=== PATIENT | male | born 1940 | race Caucasian/White ===

== ENCOUNTER 2020-04-28 18:59 | Inpatient (IN) | payer OTHER, MEDICARE ==
[~2020-04-28] VITALS: Ht 177.8 cm; Wt 92.5 kg
[2020-04-28 21:17] VITALS: BP 152/100
[2020-04-28] MEDS ORDERED: NORVASC 2.5 MG2.5 MG PO (21:46)
[2020-04-28] MEDS ORDERED: COZAAR 25 MG TA25 M1 PO (21:47)
[2020-04-28] MEDS ORDERED: ELIQUIS5 MG PO (21:48)
[2020-04-28] MEDS ORDERED: FUROSEMIDE 20 M20 MG PO (21:51)
[2020-04-28] MEDS ORDERED: SILDENAFIL CIT100 MG PO (21:54)
[2020-04-28] MEDS ORDERED: SUPER THERAVIT1 EACH PO (21:55)
[2020-04-28 22:27] LABS: CHOLESTEROL 155 mg/dL (<200); HDL CHOLESTEROL 67 mg/dL (>40); LDL CHOLESTEROL 77 mg/dL (<100); TC:HDL 2.3 Ratio (Not establshd); TRIGLYCERIDE 58 mg/dL (<150); VLDL 12 mg/dL (<40)
[2020-04-28 22:41] LABS: SERUM ASSESSMENT Clear
[2020-04-29 00:24] VITALS: BP 126/85
[2020-04-29 02:13] LABS: URINE BILIRUBIN NEGATIVE (Negative); URINE BLOOD NEGATIVE (Negative); URINE CLARITY CLEAR; URINE COLOR YELLOW; URINE GLUCOSE-RANDOM* TRACE (Negative); URINE KETONES TRACE (Negative); URINE LEUKOCYTES NEGATIVE (Negative); URINE NITRITE NEGATIVE (Negative); URINE PROTEIN (DIPSTICK) NEGATIVE (Negative); URINE SPECIFIC GRAVITY 1.025 (1.005-1.035); URINE UROBILINOGEN 0.2 E.U./dl (0.2-1.0)
--- NOTE | 2020-04-29 02:17 | NUR ---
PT, A DIRECT ADMISSION FROM [facility]. PT SENT TO [facility] FOR ELEVEATED TROPONIN. PT ARRIVED 2104. ADMISSION, CONSENT FORMS , SIGNED. PT ALERT AND ORIENTED. DENIES CHEST PAIN, NAUSEA, OR VOMITING. PT REPORTS FEELING BETTER NOW ALMOST ALL HIS PRESENTING SYMPTOMS HAVE SUBSIDED. PT ORIENTED TO ROOM, TELE MONITOR APPLIED, SHOWS SR WITH WITH INTERMITTENT A PACING. INITIAL TROPONIN 0.06 ON ARRIVAL DENIES CHEST PAIN . PT MOVES INDEPENDENTLY. NO SKIN ISSUE NOTED. WILL KEEP PT NPO OVERNIGHT FOR AM CARDIAC CONSULT. PT CUREENTLY RESTING , NO CONCERN. FAMILY UPDATED ABOUT PT ADMISSION AND PLAN. WILL CONTINUE TO MONITOR .
[2020-04-29 04:56] LABS: CALCIUM 8.4 mg/dL (8.5-10.1); CREATININE 1.5 mg/dL (0.7-1.3); POTASSIUM 3.5 mmol/L (3.5-5.1)
[2020-04-29 05:05] LABS: TROPONIN-I 0.06 ng/mL (<0.06)
[2020-04-29 05:35] VITALS: BP 124/66
[2020-04-29 08:15] VITALS: BP 120/73
--- NOTE | 2020-04-29 09:19 | 2DMMODE ---
[facility] [place] [address] 2 D/M-MODE ECHOCARDIOGRAM Name: EL VERA Room #: 205-P ADM IN M.R.#: [id number] Admission: 04/28/20 Attend Phys: Claude Graves MD Discharge: Date of : 40 Report #: [id number] THIS REPORT FOR: cc: Farrukh Mccoy Damon DO Santiago, Patrick MD [facility] ~ APPROVED REPORT Study performed: 04/29/2020 07:54:20 EXAM: Comprehensive 2D, Doppler, and color-flow Echocardiogram Patient Location: In-Patient Room #: 205 Status: routine BSA: 2.10 HR: 59 bpm BP: 124/66 mmHg Other Information Study Quality: Fair Technically limited study due to body habitus. Risk Factors: Cardiac Risk Factors: HTN Indications Hypertension/HDD 2D Dimensions IVSd: 11.53 (7-11mm) LVOT Diam: 20.11 (18-24mm) LVDd: 43.75 mm PWd: 12.03 (7-11mm) Ascending Ao: 35.63 (22-36mm) LVDs: 35.17 (25-40mm) Aortic Root: 30.36 mm IVC: 22.00 mm LV Single Plane 4CH: 51.40 % Oneal's LVEF: 51.00 % Volumes Left Atrial Volume (Systole) Single Plane 4CH: 37.97 mL Single Plane 2CH: 37.62 mL LA ESV Index: 21.00 mL/m2 Aortic Valve AoV Peak Randolph.: 1.43 m/s [facility] [address] 2 D/M-MODE ECHOCARDIOGRAM Name: EL VERA Room #: 205-P [facility] IN .R.#: [id number] Admission: 04/28/20 Attend Phys: Claude Graves MD Discharge: Date of : 40 Report #: [id number] Peak Gr.: 8.22 mmHg LVOT Max P.06 mmHg LVOT Max V: 0.87 m/s MELIA Vmax: 1.94 cm2 Mitral Valve MV Peak Gr.: 4.26 mmHg MV Mean Gr.: 1.56 mmHg E/A Ratio: 0.9 MV Decel. Time: 5202.72 ms MV E Max Randolph.: 0.58 m/s MV A Randolph.: 0.63 m/s MV Max Randolph.: 1.03 m/s MV Mean Randolph.: 0.55 m/s MV VTI: 282.22 mm MV PHT: 1508.79 ms IVRT: 83.04 ms TDI E/Lateral E': 6.44 Lateral E' Randolph.: 0.09 m/s Pulmonary Vein P Vein S: 0.80 m/s P Vein A: 0.27 m/s P Vein D: 0.42 m/s P Vein A Dur.: 179.9 msec P Vein S/D Ratio: 1.90 Tricuspid Valve TR Peak Randolph.: 2.38 m/s RAP Estimate: 10.00 mmHg TR Peak Gr.: 22.57 mmHg RVSP: 33.00 mmHg Left Ventricle The left ventricle is normal size. There is normal left ventricular wall thickness. Left ventricular systolic function is borderline. LVEF is 50-55%. Right Ventricle The right ventricle is normal size. The right ventricular systolic function is normal. Atria The left atrium size is normal. The right atrium size is normal. A pacemaker is seen in the right atrium consistent with history. Aortic Valve The aortic valve is normal in structure. No aortic regurgitation is present. There is no aortic valvular stenosis. [facility] [address] [place] [address] 2 D/M-MODE ECHOCARDIOGRAM Name: EL VERA Room #: 205-P [facility] IN .R.#: [id number] Admission: 04/28/20 Attend Phys: Claude Graves MD Discharge: Date of : 40 Report #: [id number] Mitral Valve The mitral valve is normal in structure. There is mitral annular calcification. Mild mitral regurgitation. Mild mitral stenosis. Tricuspid Valve The tricuspid valve is normal in structure. Mild tricuspid regurgitation. Pulmonic Valve Pulmonic valve is not well visualized. Pulmonic valve leaflets are thickened. Pulmonic valve leaflets are calcified. Great Vessels The aortic root is normal in size. IVC is dilated and collapses >50% with inspiration. <Conclusion> Normal left ventricular size, wall thickness EF 55% Normal atrial size Normal right ventricular size/function Color-flow upper study was performed of the aortic/mitral/tricuspid/pulmonary valve Mild mitral valve insufficiency Trace tricuspid valve insufficiency Linear density right atrium suggestive of a pacemaker wire No pericardial effusion IVC mildly dilated but responsive to respiration <ELECTRONICALLY SIGNED> By: Dixon [place] MD, FACC 04/29/20917 7 7 Dixon [place] MD, FACC /INF
--- NOTE | 2020-04-29 09:35 | EKG ---
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
[2020-04-29 11:30] VITALS: BP 145/72
--- NOTE | 2020-04-29 15:40 | NUR ---
met with patient and dtr at bedside. Patient admits with confusion. Patient resides at home alone. He has steps to basement and reports no difficulty. Patient reports no hx of DME. he cont to drive. PCP Dr Farrukh Mccoy. anticipate no dc needs. Therapy evals in process.
[2020-04-29 16:00] VITALS: BP 128/59
--- NOTE | 2020-04-29 18:20 | NUR ---
PT IS ALERT AND ORIENTED X4, PLEASANT. PT SEEN BY CARDIOLOGY, NEUROLOGY. PT/OT CONSULTED. PT HAS BILAT LOWER EXTREMITY EDEMA +1. PT DAUGHTER AT BEDSIDE. POC IS TO CONTINUE TROPONIN LEVELS, LAB VALUES, TO DETERMINE CAUSE OF DIZZINESS/CONFUSION THAT OCCURED. NEURO CONSULT 04/30/2020. PT IS UP AD LUAN, TOILETS SELF. NO CONCERNS AT THIS TIME.
[2020-04-29 20:12] VITALS: BP 144/78
[2020-04-30 05:48] LABS: HEMATOCRIT 44.9 % (42.0-52.0); HEMOGLOBIN 14.8 gm/dL (14.0-18.0); MCH 33.7 pg (26.0-34.0); MCV 102.2 fL (80.0-100.0); RBC 4.39 mil/uL (4.50-6.00); RDW 13.3 % (10.5-14.5); WBC 7.3 thou/uL (4.0-11.0)
[2020-04-30 05:57] LABS: CALCIUM 8.3 mg/dL (8.5-10.1); CREATININE 1.5 mg/dL (0.7-1.3); POTASSIUM 3.6 mmol/L (3.5-5.1)
--- NOTE | 2020-04-30 06:10 | NUR ---
NO EVENTS OVERNIGHT. PT ALERT AND ORIENTED. DENIES CHEST PAIN, NAUSEA OR VOMITING. PT STATES HE IS READY TO DC HOME. WILL CONTINUE TO MONITOR
[2020-04-30 06:23] VITALS: BP 139/75
[2020-04-30 08:05] VITALS: BP 132/81
--- NOTE | 2020-04-30 12:13 | NUR ---
PT IS ALERT AND ORIENTED; DAUGHTER AT THE BEDSIDE. EEG CONDUCTED THIS AM. DR CARVAJAL SAW PT. DR ENGEL SAW PT. MRI SCHEDULED FOR OUTPATIENT PROCEDURE. PACEMAKER ASSESSED TO BE COMPATABLE FOR MRI, PER CARDIOLOGY. PT EDUCATION ON MEDICATION, FOLLOW UP IN TWO WEEKS. PT DISCHARGED HOME WITH DAUGHTER IN PERSONAL VEHICLE.
[2020-04-30 12:25] VITALS: BP 131/82
[2020-04-30 12:32] VITALS: BP 132/81
--- NOTE | 2020-05-03 21:06 | HC ---
[facility] [place] [address] CONSULTATION Name: EL VERA Room #: 205-P [facility] IN M.R.#: [id number] Admission: 04/28/20 Attend Phys: Claude Graves MD Discharge: 04/30/20 Date of : 40 Report #: [id number] THIS REPORT FOR: cc: Farrukh Mccoy,Farrukh Chen,Marcus Plaza MD ~ DATE OF SERVICE: 04/29/2020 HISTORY OF PRESENT ILLNESS: This is an 80-year-old male patient who was evaluated by me with somewhat of an unusual history. He gives a history that for some reason Monday night, he did not sleep at all. He said he may have been "some tight," but he did not drink any extra alcohol and for some reason, could not go back to sleep. On Monday night, he went to sleep, but when he woke up, he was confused. I am not even sure how much confused he was. He does not remember much. He has pretty good memory of everything else. [facility] and apparently, it was unremarkable. I cannot find that CT scan, but H and P documented there was no acute abnormality. He never had this kind of episode before and he has been feeling back to his baseline. REVIEW OF SYSTEMS: Indicate that he does have some memory issues, which is going on for some time. 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 He is not a diabetic. He has a pacemaker and he thinks it is about 3 years old. He does not know if it is compatible with MRI or not. He does have a history of radiculopathy. He does have a carpal tunnel syndrome. He does have a history of hypertension. This was his relevant 14-point review of system. PAST MEDICAL HISTORY: Positive for DVT for which he is on anticoagulation. FAMILY HISTORY: Unremarkable. SOCIAL HISTORY: He says he drinks 1 alcoholic drink every night. He does not drink anymore and he did not do any more in the last few days. PHYSICAL EXAMINATION: The patient's examination indicates he is alert, responsive, able to follow simple commands. He can tell me what month it is. It took him some time, but he told me what hospital he is in and who the president is. His speech looks intact. Cranial nerve examination 2-12 looks mostly unremarkable. His strength, sensation, reflexes and tone is symmetrical. There is no meningeal sign. There is no carotid bruit. His position sense is intact. I could not look at the patient's fundus. He is a well-built individual. He does not have any dysmorphic features of eyes, ears and face. Cardiorespiratory examination is mostly unremarkable. He does not have any respiratory difficulty. His blood pressure is 128/59, respiration is 20, pulse [address] [address] CONSULTATION Name: EL VERA Tasneem Room #: 205-P [facility] IN M.R.#: [id number] Admission: 04/28/20 Attend Phys: Claude Graves MD Discharge: 04/30/20 Date of : 40 Report #: [id number] is 60, and temperature is 99.1. IMPRESSION: It is possible this patient has a transient global amnesia. History is somewhat atypical. I will check an EEG because there is a family history of dementia and it is possible he is also developing early dementia, which needs to be worked up as an outpatient. We will check a TSH and vitamin B12. We need to find out if his pacemaker is compatible with MRI. If it is, we will do an MRI, but most likely that will be as an outpatient because it needs to be set up even if the pacemaker is compatible with MRI. I discussed all of it with the patient and if his EEG is okay, I think, from neurological perspective, we will not do anything at this stage and set up the MRI and MRA. I do not think we should proceed with a CT angiogram because his creatinine is high and the chance of finding something on his CT angiogram is low. I had talked to the family and the patient in great detail and I have discussed their option and discussed this plan and they want to follow this plan and we will do that. Thank you very much for this referral. <ELECTRONICALLY SIGNED> By: Marcus Chaidez MD 05/03/206 12 21 Marcus Chaidez MD /nt
--- NOTE | 2020-05-03 21:07 | EEG ---
[facility] [place] [address] ELECTROENCEPHALOGRAM Name: EL VERA Room #: 205-P [facility] IN M.R.#: [id number] Admission: 04/28/20 Attend Phys: Claude Graves MD Discharge: 04/30/20 Date of : 40 Report #: [id number] THIS REPORT FOR: //name// DATE OF SERVICE: 04/30/2020 This patient is being evaluated for altered mental status. EEG was done by placing the electrode by standard 10-20 system of electrode placement. Both referential and sequential montages were used for recording. Background activity in this patient's EEG is about 9 Hz and 30 microvolt. The patient went to sleep that is associated with bilateral slowing and vertex sharp waves. Throughout the record, no active epileptiform activity was noticed. IMPRESSION: This patient's EEG demonstrates some intermixed theta range slowing, but does not appear to be showing any definite epileptiform activity. Thank you very much for this referral. <ELECTRONICALLY SIGNED> By: Marcus Chaidez MD 05/03/20 2107 1151 1210 Marcus Chaidez MD /nt
== END 2020-04-30 13:11 | disposition home or self-care (01) | DRG 70 ==
LOC: 2N 18:59 → EDSEX 21:13 → 2N 04-30 13:11
PROVIDERS: Nurse Practitioner Family; ADMIT Hospitalist; ATTEND Hospitalist
DX: G45.4 Transient global amnesia (principal); G93.41 Metabolic encephalopathy; N28.9 Disorder of kidney and ureter, unspecified; R79.89 Other specified abnormal findings of blood chemistry; I10 Essential (primary) hypertension; I49.5 Sick sinus syndrome; F03.90 Unspecified dementia, unspecified severity, without behavioral disturbance, psychotic disturbance, mood disturbance, and anxiety; Z96.642 Presence of left artificial hip joint; I87.2 Venous insufficiency (chronic) (peripheral); Z60.2 Problems related to living alone; E53.8 Deficiency of other specified B group vitamins; N40.0 Benign prostatic hyperplasia without lower urinary tract symptoms; Z86.718 Personal history of other venous thrombosis and embolism; Z95.0 Presence of cardiac pacemaker; Z85.46 Personal history of malignant neoplasm of prostate; Z82.49 Family history of ischemic heart disease and other diseases of the circulatory system; Z81.8 Family history of other mental and behavioral disorders; Z87.891 Personal history of nicotine dependence; Z79.82 Long term (current) use of aspirin; Z79.899 Other long term (current) drug therapy
CPT/HCPCS: 10081

== ENCOUNTER 2020-07-30 12:36 | Inpatient (IN) | payer OTHER, MEDICARE ==
[~2020-07-30] VITALS: Ht 175.3 cm; Wt 89.8 kg
--- NOTE | ~2020-07-30 | EEG ---
[facility] [place] [address] ELECTROENCEPHALOGRAM Name: CHUYEL Boateng Room #: 455-P [facility] IN M.R.#: [id number] Admission: 07/30/20 Attend Phys: Tarun Royal MD Discharge: Date of : 40 Report #: [id number] THIS REPORT FOR: //name// DATE OF SERVICE: 07/30/2020 This patient is being evaluated for seizure. EEG was done by placing the electrode by standard 10-20 system of electrode placement. Both referential and sequential montages were used for recording. Background activity in this patient's EEG is about 9 Hz and 30 microvolt. He repeatedly goes to sleep and that is associated with bilateral slowing and vertex sharp waves. Photic stimulation was unremarkable. No active epileptiform activity was noticed during this record. IMPRESSION: This patient's EEG is unremarkable. Thank you very much for this referral. By: 1200 1219 Marcus Chaidez MD /nt
--- NOTE | ~2020-07-30 | HC ---
[facility] [place] [address] CONSULTATION Name: EL VERA Room #: 170-3 ADM IN M.R.#: [id number] Admission: 07/30/20 Attend Phys: Tarun Royal MD Discharge: Date of : 40 Report #: [id number] THIS REPORT FOR: cc: Farrukh Mccoy,Farrukh Chen,Marcus Plaza MD ~ DATE OF SERVICE: 07/30/2020 HISTORY OF PRESENT ILLNESS: This is an 80-year-old male patient who was evaluated by me for seizure. The patient was admitted here the last time with what looks like typical transient global amnesia with seizure is not excluded. Today, the patient started becoming dizzy and dizziness progressively increased. The patient started shaking and then passed out. He does not remember anything and he had a clearly defined postictal confusion. His pulses and the blood pressure was not checked that time, but it was checked by ambulance and they told her it was unremarkable. I do not know if the blood sugar was checked that time or not. The episode was noticed by girlfriend and she apparently is a retired nurse and it was her impression that it was a seizure. REVIEW OF SYSTEMS: Indicate this patient has a sick sinus syndrome and he has a pacemaker. It is not clear whether this is compatible with MRI or not. He has a history of cervical radiculopathy and carpal tunnel syndrome. He had a prostate cancer. He has a history of hypertension and history of DVT and he is on anticoagulation. This was his relevant 14-point review of system. PAST MEDICAL HISTORY: Positive for similar spell. FAMILY HISTORY: Negative for congenital epilepsy. SOCIAL HISTORY: He drink alcohol, but he says he drinks only one alcoholic drink a day. PHYSICAL EXAMINATION: NEUROLOGIC: He is alert. He is responsive. He can follow simple commands. His memory is somewhat diminished, difficult to tell if it is because of his seizures or his baseline. His speech looks intact. Cranial nerve examination 2-12 does not appear to be showing any definite abnormality. Neuromuscular examination is symmetrical. There is no meningeal sign. There is no carotid bruit. CARDIAC: Examinations appear unremarkable. RESPIRATORY: No respiratory difficulty. VITAL SIGNS: Blood pressure is 125/66, respirations 19, pulse is 76. LABORATORY STUDIES: His lab indicates basically unremarkable. His magnesium is not done. [address] [address] CONSULTATION Name: CHUYEL Boateng Room #: [facility] IN .R.#: [id number] Admission: 07/30/20 Attend Phys: Tarun Royal MD Discharge: Date of : 40 Report #: [id number] IMPRESSION: This patient appears to have a seizure. No underlying cause is apparent at the moment, but he needs an MRI if it can be done to exclude any causes, we will see if it can be done. I think this patient should be on anticonvulsant because seizure was impressive and he has a prior history also. I discussed that aspect with him establishing a diagnosis of seizure is difficult because EEG is normal and is not sensitive enough to [employer] the seizure in vast majority of the patients with late onset of seizures. We will monitor for any cardiac abnormality because of the dizziness to see if we can picket [employer] some. Whenever MRI is done, I will also like to do an MRV to make sure there is no venous sinus problems, which is causing seizure. We may consider a CT angiogram. His BUN and creatinine was high last time, so we do not do that. I will ask them to find out if MRI, MRV and MRA can be done, if it can be done I do not think we will proceed with any other testing and we will proceed with that testing. I had a long discussion with the patient and the family and prior to that discussed the patient with Emergency Room physician as well as admitting nurse practitioner and I spent more than 50 minutes of time taking care of this patient today and majority was spent counseling and coordinating. Thank you very much for this referral. By: 1610 1637 Marcus Chaidez MD /nt
[2020-07-30 12:36] VITALS: BP 128/79
[~2020-07-30 12:36] MED LIST: COZAAR 25 MG TA25 M1 PO; ELIQUIS5 MG PO; FUROSEMIDE 20 M20 MG PO; NORVASC 2.5 MG2.5 MG PO; SILDENAFIL CIT100 MG PO; SUPER THERAVIT1 EACH PO
--- NOTE | 2020-07-30 13:08 | EKG ---
[place] [address] MD [facility] [place] [address] ELECTROCARDIOGRAM REPORT Name: EL VERA [id number] Admission: 07/30/20 Attend Phys: Discharge: Date of : 40 Report #: [id number] [facility] ED Test Date: 2020-07-30 Test Time: 12:59:48 Pat Name: EL VERA Department: Room: Gender: M International Project Manager: sevrando : 1940 Requested By: Almaz Villeda Order Number: [id number] MD: Jairo You Measurements Intervals [place] Rate: 65 P: 19 [place]: 176 QRS: 5 QRSD: 94 T: 10 QT: 446 QTc: 464 Interpretive Statements Sinus rhythm Borderline T abnormalities, inferior leads Compared to ECG 04/29/2020 07:36:16 Atrial-paced complex(es) or rhythm no longer present Electronically Signed On 07-30-2020 13:08:28 CDT by Jairo You [email or web address] <ELECTRONICALLY SIGNED> By: Jairo You MD, [facility] 07/30/20 1308 1259 1259 Jairo You MD, FACC /EPI
[2020-07-30 13:15] LABS: HEMATOCRIT 41.8 % (42.0-52.0); MCH 33.1 pg (26.0-34.0); MCHC 33.5 g/dL (28.0-37.0); MCV 98.8 fL (80.0-100.0); RBC 4.23 mil/uL (4.50-6.00); RDW 14.1 % (10.5-14.5)
[2020-07-30 13:31] LABS: CALCIUM 8.7 mg/dL (8.5-10.1); CREATININE 1.3 mg/dL (0.7-1.3); POTASSIUM 4.1 mmol/L (3.5-5.1)
[2020-07-30 13:35] LABS: ALBUMIN 3.5 g/dL (3.4-5.0); TOTAL BILIRUBIN 0.6 mg/dL (0.2-1.0); TOTAL PROTEIN 7.1 g/dL (6.4-8.2)
[2020-07-30 15:45] VITALS: BP 125/66
[2020-07-30 17:20] VITALS: BP 114/68
[2020-07-30 20:04] VITALS: BP 128/80
--- NOTE | 2020-07-30 20:37 | NUR ---
PATIENT ADMITTED TO 4W FROM ED AT 1800. PLACED ON MONTIOR. ADMISSION ASSESSMENT AND HISTROY COMPLETE. DAUGHTER INFORMED RN THAT PACEMAKER IS MRI COMPATABILE. IT IS A [employer] DEVICE # [id number]. FALL PRECUATIONS IN PLACE. PATIENT EDUCATED ON USE OF CALL LIGHT. REPORT GIVEN TO ONCOMING NURSE.
--- NOTE | 2020-07-31 05:03 | NUR ---
patient on seizures precaution, bed padded for safety. fall precaution applied. patient denied pain or discomfort. patient ambulated to the bathroom with steady gaits. patient in bed asleep at this time breathing regular and unlaboured.
[2020-07-31 05:19] LABS: ABSOLUTE NEUTROPHILS 3.4 thou/uL (1.4-8.2); BASOPHILS 0.8 % (0.0-2.0); EOSINOPHILS 1.8 % (0.0-3.0); HEMATOCRIT 39.3 % (42.0-52.0); HEMOGLOBIN 13.2 gm/dL (14.0-18.0); MCH 33.4 pg (26.0-34.0); MCHC 33.6 g/dL (28.0-37.0); MCV 99.3 fL (80.0-100.0); MONOCYTES 7.7 % (1.0-8.0); PLATELET COUNT 160 thou/uL (150-400); POLYS 56.7 % (36.0-66.0); RBC 3.96 mil/uL (4.50-6.00); RDW 14.4 % (10.5-14.5); WBC 5.9 thou/uL (4.0-11.0)
[2020-07-31 05:39] LABS: CALCIUM 8.4 mg/dL (8.5-10.1); CREATININE 1.2 mg/dL (0.7-1.3); MAGNESIUM 2.2 mg/dL (1.8-2.4); POTASSIUM 3.9 mmol/L (3.5-5.1)
[2020-07-31 07:35] VITALS: BP 141/72
--- NOTE | 2020-07-31 11:44 | NUR ---
Received awake on bed. Due medications given as prescribed, able to swallow meds w/o difficulty. On room air. Vital signs stable. On telemetry, no complains and signs of chest pain, crushing sensation and heaviness. Assisted in ADLs. On regular diet- tolerating well; no nausea, no vomiting and no abdominal pain noted. Continent of bowel and bladder, going to the toilet with standby assist. Fall and seizure precaution observed. With SL at R hand. Visited by daughter today- updated. Still a/w for pacemaker enrollment eligibility representative to verify pacemaker; possible MRI of head. Pt seen and examined by Dr Royal- orders obtained of Left upper extremity ultrasound to rule out DVT- pt brought down to ultrasound via wheelchair. Order for MRI obtained while pt is still at ultrasound- coordinated with pacemaker enrollment eligibility representative to go down to MRI for patient. MRI staff [facility] called- pacemaker checked; but still unable to do MRI becausea pt has metal fragment in his eye- Dr Royal informed; a/w response. No complains of pain made during assessment. To continue monitoring patient.
[2020-07-31] MEDS ORDERED: KEPPRA 500 MG500 M1 PO (12:03)
[2020-07-31 12:16] VITALS: BP 124/77
[2020-07-31] MEDS ORDERED: ASA81BEC PO (14:46)
--- NOTE | 2020-07-31 15:24 | NUR ---
ORDERS RECEIVED FOR EVAL AND TREAT. OBSERVED Pt STAND UP AND AMBULATE IN ROOM UPON ARRIVAL. Pt DENIES ANY ISSUES WITH STRENGTH, BALANCE OR MOBILITY. Pt IS DECLINING A FORMAL P.T. EVAL BUT APPEARS SAFE FOR HOME. DISCUSSED WITH NURSING
[2020-07-31 15:40] VITALS: BP 131/82
[2020-07-31 15:57] VITALS: BP 131/82
== END 2020-07-31 17:09 | disposition home or self-care (01) | DRG 101 ==
LOC: ER 12:36 → EROBS 14:29 → 4W 17:04
PROVIDERS: Nurse Practitioner; Student in an Organized Health Care Education/Training Program; ADMIT Hospitalist; ATTEND Hospitalist
DX: R56.9 Unspecified convulsions (principal); F03.90 Unspecified dementia, unspecified severity, without behavioral disturbance, psychotic disturbance, mood disturbance, and anxiety; I49.5 Sick sinus syndrome; I87.2 Venous insufficiency (chronic) (peripheral); Z60.2 Problems related to living alone; Z79.899 Other long term (current) drug therapy; Z86.718 Personal history of other venous thrombosis and embolism; Z95.0 Presence of cardiac pacemaker; Z85.46 Personal history of malignant neoplasm of prostate; Z87.891 Personal history of nicotine dependence
CPT/HCPCS: 10045